=== PATIENT | male | born 1960 | race Two or more races ===

== ENCOUNTER 2017-03-22 10:50 | Inpatient (IN) | payer MEDICAID ==
[~2017-03-22] VITALS: Ht 170.2 cm; Wt 65.8 kg
[2017-03-22] MEDS ORDERED: IBUPROFEN 200 MG TABLET ONE (11:10)
[2017-03-22] MEDS ORDERED: SODIUM CHLORIDE FLUSH 10ML SYR IVF ONE (11:30)
[2017-03-22] MEDS ORDERED: SODIUM CHLORIDE 0.9% 1,000ML IVBOLUS ONE ×3 (11:30→13:00)
[2017-03-22] MEDS ORDERED: IBUPROFEN 200 MG TABLET PO ONE (11:30)
[2017-03-22 11:44] LABS: HEMATOCRIT 46.1 % (39.2-51.8); HEMOGLOBIN 15.6 g/dL (13.7-18.0); WHITE BLOOD COUNT 14.3 x10^3/uL (3.4-10)
[2017-03-22 11:53] LABS: BLOOD UREA NITROGEN 7 mg/dL (7-18)
[2017-03-22] MEDS ORDERED: CEFTRIAXONE PMX 2GM/50ML 50 ML ONE (12:27)
[2017-03-22] MEDS ORDERED: SODIUM CHLORIDE 0.9% 1,000 ML IV ONE (12:50)
[2017-03-22] MEDS ORDERED: SODIUM CHLORIDE FLUSH 10ML SYR IVF PRN (13:00)
[2017-03-22] MEDS ORDERED: AZITHROMYCIN 250 MG TABLET PO ONE (13:00)
[2017-03-22] MEDS ORDERED: CEFTRIAXONE PMX 2GM/50ML 50 ML IV SCH (13:00)
[2017-03-22] MEDS ORDERED: ENALAPRILAT 1.25 MG/ML, 2ML IVPush PRN (14:30)
[2017-03-22] MEDS ORDERED: ONDANSETRON 2MG/ML, 2ML IVPush PRN (14:30)
[2017-03-22] MEDS ORDERED: LABETALOL 5MG/ML, 20ML IVPush PRN (14:30)
[2017-03-22] MEDS ORDERED: ONDANSETRON ODT 4 MG PO PRN (14:30)
[2017-03-22] MEDS ORDERED: DOCUSATE 100 MG CAPSULE PO PRN (14:30)
[2017-03-22 14:52] VITALS: BP 147/84
[2017-03-22] MEDS ORDERED: ALBUTEROL SULFATE 2.5 MG/3 ML ONE (15:20)
[2017-03-22] MEDS: ALBUTEROL SULFATE 2.5 MG/3 ML NPPB SCH ×2 (15:30→19:17)
[2017-03-22] MEDS: SODIUM CHLORIDE 0.9% 1,000 ML IV SCH (15:49)
[2017-03-22] MEDS: GUAIFENESIN/DM 200-20MG, 10ML UDC PO PRN (15:59)
[2017-03-22] MEDS ORDERED: PNEUMOCOCCAL 23 VACCINE IM-VACC ONE ×2 (17:00→18:00)
[2017-03-22] MEDS ORDERED: FLU VACC QS2017-18 (36MOS+) UP/PF 0.5 ML IM-VACC ONE ×2 (17:00→17:30)
[2017-03-22] MEDS: NICOTINE 7 MG/24 HR PATCH.TD24 TD SCH (17:28)
[2017-03-22 18:13] LABS: IS PT STATUS REG ER OR PRE ER? NO
[2017-03-22 20:01] VITALS: BP 154/82
[2017-03-22] MEDS ORDERED: OMNIPAQUE 350 MG/ML, 100ML BOTTLE ONE (20:10)
[2017-03-22] MEDS: ACETAMINOPHEN 325 MG TABLET PO PRN (20:47)
[2017-03-23 00:51] VITALS: BP 133/80
[2017-03-23] MEDS: ACETAMINOPHEN 325 MG TABLET PO PRN (01:08)
[2017-03-23] MEDS: SODIUM CHLORIDE 0.9% 1,000 ML IV SCH ×2 (02:26→15:36)
[2017-03-23 05:12] LABS: HEMATOCRIT 37.8 % (39.2-51.8); WHITE BLOOD COUNT 10.9 x10^3/uL (3.4-10)
[2017-03-23 05:14] LABS: BLOOD UREA NITROGEN 9 mg/dL (7-18)
[2017-03-23] MEDS: ALBUTEROL SULFATE 2.5 MG/3 ML NPPB SCH ×4 (07:10→20:00)
[2017-03-23 08:00] VITALS: BP 135/75
[2017-03-23] MEDS: SENNA/DOCUSATE TABLET PO SCH (09:00)
[2017-03-23] MEDS: GUAIFENESIN/DM 200-20MG, 10ML UDC PO PRN (09:31)
[2017-03-23 10:36] VITALS: BP 138/83
[2017-03-23] MEDS ORDERED: POTASSIUM CHLORIDE 20 MEQ TAB.ER.PRT PO ONE (12:30)
[2017-03-23] MEDS: AZITHROMYCIN 500 MG in SODIUM CHLORIDE 0.9% 250 ML IV SCH (12:35)
[2017-03-23] MEDS ORDERED: CEFTRIAXONE PMX 2GM/50ML 50 ML IV ONE (13:00)
[2017-03-23] MEDS: ENOXAPARIN 40 MG/0.4 ML SQ SCH (13:27)
[2017-03-23 14:18] VITALS: BP 150/88
[2017-03-23] MEDS: NICOTINE 7 MG/24 HR PATCH.TD24 TD SCH (15:38)
[2017-03-23 18:49] VITALS: BP 135/74
[2017-03-24] MEDS: ACETAMINOPHEN 325 MG TABLET PO PRN ×4 (00:21→17:09)
[2017-03-24] MEDS: SODIUM CHLORIDE 0.9% 1,000 ML IV SCH ×2 (00:21→19:11)
[2017-03-24 01:28] VITALS: BP 142/80
[2017-03-24 04:52] LABS: HEMATOCRIT 37.2 % (39.2-51.8); HEMOGLOBIN 12.6 g/dL (13.7-18.0); WHITE BLOOD COUNT 6.9 x10^3/uL (3.4-10)
[2017-03-24 05:00] LABS: ASPARTATE AMINO TRANSFERASE 24 U/L (15-37); BLOOD UREA NITROGEN 8 mg/dL (7-18)
[2017-03-24 06:32] VITALS: BP 139/75
[2017-03-24] MEDS: ALBUTEROL SULFATE 2.5 MG/3 ML NPPB SCH ×4 (08:10→19:15)
[2017-03-24] MEDS: SENNA/DOCUSATE TABLET PO SCH (08:35)
[2017-03-24] MEDS: AZITHROMYCIN 500 MG in SODIUM CHLORIDE 0.9% 250 ML IV SCH (12:46)
[2017-03-24] MEDS: ENOXAPARIN 40 MG/0.4 ML SQ SCH (12:47)
[2017-03-24] MEDS: NICOTINE 7 MG/24 HR PATCH.TD24 TD SCH (12:47)
[2017-03-24 13:22] VITALS: BP 121/70
[2017-03-24] MEDS ORDERED: POTASSIUM CHLORIDE 20 MEQ TAB.ER.PRT PO ONE (14:30)
[2017-03-24 18:35] VITALS: BP 150/73
[2017-03-24] MEDS ORDERED: ONDANSETRON 2MG/ML, 2ML IVPush PRN (21:30)
[2017-03-24] MEDS ORDERED: DOCUSATE 100 MG CAPSULE PO PRN (21:30)
[2017-03-24] MEDS ORDERED: LABETALOL 5MG/ML, 20ML IVPush PRN (21:30)
[2017-03-24] MEDS ORDERED: ONDANSETRON ODT 4 MG PO PRN (21:30)
[2017-03-24] MEDS ORDERED: ENALAPRILAT 1.25 MG/ML, 2ML IVPush PRN (21:30)
[2017-03-25 01:06] VITALS: BP 139/74
[2017-03-25] MEDS: SODIUM CHLORIDE 0.9% 1,000 ML IV SCH ×2 (05:01→15:45)
[2017-03-25 05:24] LABS: HEMOGLOBIN 12.9 g/dL (13.7-18.0); WHITE BLOOD COUNT 3.8 x10^3/uL (3.4-10)
[2017-03-25 05:26] LABS: BLOOD UREA NITROGEN 7 mg/dL (7-18)
[2017-03-25 06:27] VITALS: BP 157/82
[2017-03-25] MEDS: ALBUTEROL SULFATE 2.5 MG/3 ML NPPB SCH ×4 (07:20→20:40)
[2017-03-25] MEDS: SENNA/DOCUSATE TABLET PO SCH (07:34)
[2017-03-25] MEDS: ACETAMINOPHEN 325 MG TABLET PO PRN ×3 (07:37→15:45)
[2017-03-25 12:25] VITALS: BP 138/69
[2017-03-25] MEDS: ENOXAPARIN 40 MG/0.4 ML SQ SCH (13:13)
[2017-03-25] MEDS: AZITHROMYCIN 500 MG in SODIUM CHLORIDE 0.9% 250 ML IV SCH (13:14)
[2017-03-25] MEDS: NICOTINE 7 MG/24 HR PATCH.TD24 TD SCH (15:00)
[2017-03-25] MEDS ORDERED: POTASSIUM CHLORIDE 20 MEQ TAB.ER.PRT PO ONE (19:00)
[2017-03-25 19:14] VITALS: BP 167/92
[2017-03-25] MEDS: LACTOBACILLUS 1GM/ PACKET PO SCH (19:44)
[2017-03-26 00:52] VITALS: BP 160/80
[2017-03-26] MEDS: LACTOBACILLUS 1GM/ PACKET PO SCH ×4 (05:45→20:31)
[2017-03-26] MEDS: ACETAMINOPHEN 325 MG TABLET PO PRN (05:45)
[2017-03-26 06:27] LABS: BLOOD UREA NITROGEN 5 mg/dL (7-18)
[2017-03-26 06:39] VITALS: BP 157/83
[2017-03-26] MEDS: ALBUTEROL SULFATE 2.5 MG/3 ML NPPB SCH ×2 (07:00→21:00)
[2017-03-26] MEDS: SENNA/DOCUSATE TABLET PO SCH (09:00)
[2017-03-26 12:04] VITALS: BP 153/90
[2017-03-26] MEDS: AZITHROMYCIN 500 MG in SODIUM CHLORIDE 0.9% 250 ML IV SCH (13:35)
[2017-03-26] MEDS: ENOXAPARIN 40 MG/0.4 ML SQ SCH (13:38)
[2017-03-26] MEDS: NICOTINE 7 MG/24 HR PATCH.TD24 TD SCH (16:23)
[2017-03-26] MEDS ORDERED: ALBUTEROL SULFATE 2.5 MG/3 ML ONE (18:25)
[2017-03-26] MEDS ORDERED: CEFD300C37 PO (18:44)
[2017-03-26] MEDS ORDERED: AZIT500T5 PO (18:44)
[2017-03-26 19:12] VITALS: BP 151/84
[2017-03-27 00:54] VITALS: BP 155/91
[2017-03-27] MEDS: LACTOBACILLUS 1GM/ PACKET PO SCH ×4 (05:58→20:37)
[2017-03-27 07:51] VITALS: BP 160/91
[2017-03-27] MEDS: SENNA/DOCUSATE TABLET PO SCH (09:00)
[2017-03-27] MEDS ORDERED: CEFTRIAXONE PMX 1GM/50ML 50 ML IV SCH (09:30)
[2017-03-27] MEDS: ALBUTEROL SULFATE 2.5 MG/3 ML NPPB SCH (09:31)
[2017-03-27] MEDS: ACETAMINOPHEN 325 MG TABLET PO PRN (10:09)
[2017-03-27] MEDS: AZITHROMYCIN 500 MG in SODIUM CHLORIDE 0.9% 250 ML IV SCH (13:09)
[2017-03-27] MEDS: ENOXAPARIN 40 MG/0.4 ML SQ SCH (13:15)
[2017-03-27 14:44] VITALS: BP 148/81
[2017-03-27] MEDS: NICOTINE 7 MG/24 HR PATCH.TD24 TD SCH (16:30)
[2017-03-27 18:40] VITALS: BP 158/82
[2017-03-27] MEDS: CEFDINIR 300 MG CAPSULE PO SCH (20:37)
[2017-03-28 01:50] VITALS: BP 127/69
[2017-03-28] MEDS: LACTOBACILLUS 1GM/ PACKET PO SCH (06:14)
[2017-03-28] MEDS: CEFDINIR 300 MG CAPSULE PO SCH (08:32)
[2017-03-28] MEDS: ACETAMINOPHEN 325 MG TABLET PO PRN (08:32)
[2017-03-28] MEDS: SENNA/DOCUSATE TABLET PO SCH (08:32)
[2017-03-28 10:53] VITALS: BP 147/90
== END 2017-03-28 12:10 | disposition home or self-care (01) | DRG 871 ==
LOC: ED 12:27 → EDIP 12:50 → 3NE 14:36 → DCLOUNGE 03-28 11:16
PROVIDERS: ADMIT Internal Medicine; ATTEND Internal Medicine
DX: A41.9 Sepsis, unspecified organism (principal); J15.9 Unspecified bacterial pneumonia; E83.51 Hypocalcemia; E87.6 Hypokalemia; F12.90 Cannabis use, unspecified, uncomplicated; M17.12 Unilateral primary osteoarthritis, left knee; X58.XXXA Exposure to other specified factors, initial encounter; S83.005A Unspecified dislocation of left patella, initial encounter; Z66 Do not resuscitate; F17.210 Nicotine dependence, cigarettes, uncomplicated; I10 Essential (primary) hypertension; Q74.1 Congenital malformation of knee; Z59.0 Homelessness; Z82.49 Family history of ischemic heart disease and other diseases of the circulatory system; Y93.89 Activity, other specified; Y92.89 Other specified places as the place of occurrence of the external cause; Y99.8 Other external cause status; Z71.6 Tobacco abuse counseling; Z23 Encounter for immunization; S83.112A Anterior subluxation of proximal end of tibia, left knee, initial encounter
CPT/HCPCS: 36415; 71010; 71275; 80048; 80053; 81001; 82040; 83605; 83735; 84100; 84145; 84484; 85025; 85379; 85610; 85730; 87040; 87070; 87205; 87324; 90686; 90732; 93005; 94640; 96361; 96365; 96366; J0456; J0696; J1650; J7613; Q9967; J7030; J7050

== ENCOUNTER 2017-05-02 06:41 | Emergency (ER) | payer MEDICAID ==
[~2017-05-02] VITALS: Ht 170.2 cm; Wt 71.6 kg
[~2017-05-02 06:41] MED LIST: AZIT500T5 PO; CEFD300C37 PO
[2017-05-02 06:42] VITALS: BP 188/93
== END 2017-05-02 08:36 | disposition home or self-care (01) ==
LOC: ED 07:44
DX: S93.422A Sprain of deltoid ligament of left ankle, initial encounter (principal); S83.412A Sprain of medial collateral ligament of left knee, initial encounter; Z88.0 Allergy status to penicillin; W19.XXXA Unspecified fall, initial encounter; Y93.89 Activity, other specified; Y92.410 Unspecified street and highway as the place of occurrence of the external cause; Y99.9 Unspecified external cause status
CPT/HCPCS: 71020; 99284

== ENCOUNTER 2018-02-28 09:51 | Emergency (ER) | payer MEDICAID ==
[~2018-02-28] VITALS: Ht 170.2 cm; Wt 76.4 kg
[2018-02-28 09:55] VITALS: BP 158/96
== END 2018-02-28 11:36 | disposition home or self-care (01) ==
LOC: ED 11:26
DX: K40.90 Unilateral inguinal hernia, without obstruction or gangrene, not specified as recurrent (principal)
CPT/HCPCS: 74176; 99284